=== PATIENT | female | born 1945 | race Caucasian/White ===

== ENCOUNTER → 2020-12-28 | Outpatient (CLI) | payer MEDICARE ==
[~2020-12-28] MED LIST: ATOR20; METO50ER
[2020-12-28 14:32] LABS: Source, Urine Clean Catch
[2020-12-28 16:07] LABS: Appearance, Urine Cloudy (Clear); Bilirubin, Urine Neg (Neg); Color, Urine Yellow (P-Yellow); Glucose Qualitative, Urine Neg (Neg); Nitrite, Urine Neg (Neg); Urobilinogen, Urine NORM (Normal)
[2020-12-28 17:16] LABS: Leukocyte Esterase, Urine 3+ (Neg)
[2020-12-28 17:19] LABS: Blood, Urine 5+ (Neg); Ketones, Urine Neg (Neg)
[2020-12-28 17:20] LABS: Specific Gravity, Urine 1.015 (1.003-1.022)
[2020-12-28 17:21] LABS: Protein, Urine 2+ (Neg)
[2020-12-28 17:25] LABS: Red Blood Cells, Urine 25-50 /hpf (0-2); Squamous Epithelial Cells Few /hpf (Few)
[2020-12-28 17:26] LABS: Amorphous Light (0-Heavy); Bacteria Mod /hpf
== END | disposition home or self-care (01) ==
LOC: LAB SHORT 14:30 → LAB 14:30
PROVIDERS: Internal Medicine
DX: R30.0 Dysuria (principal)
CPT/HCPCS: 81001; 87077; 87086; 87186

== ENCOUNTER → 2021-05-07 | Outpatient (CLI) | payer MEDICARE ==
[2021-05-07 10:39] LABS: Source, Urine Clean Catch
[2021-05-07 13:18] LABS: Appearance, Urine Clear (Clear); Bilirubin, Urine Neg (Neg); Blood, Urine Neg (Neg); Color, Urine Yellow (P-Yellow); Glucose Qualitative, Urine Neg (Neg); Ketones, Urine Neg (Neg); Leukocyte Esterase, Urine Neg (Neg); Nitrite, Urine Neg (Neg); Protein, Urine Neg (Neg); Urobilinogen, Urine NORM (Normal)
== END | disposition home or self-care (01) ==
LOC: LAB SHORT 10:35
PROVIDERS: Internal Medicine
DX: R30.0 Dysuria (principal)
CPT/HCPCS: 81003